=== PATIENT | male | born 2000 ===

== ENCOUNTER 2021-06-23 16:28 | Emergency (ER) | payer OTHER, SELFPAY ==
[2021-06-23] MEDS ORDERED: Ketorolac Tromethamine 30 MG/ML VIAL ONE (17:51)
== END 2021-06-23 17:54 | disposition home or self-care (01) ==
LOC: CSHERS 16:28
DX: S09.90XA Unspecified injury of head, initial encounter (principal); V49.40XA Driver injured in collision with unspecified motor vehicles in traffic accident, initial encounter
CPT/HCPCS: 70450; 96372; J1885